=== PATIENT | female | born 1975 | race Caucasian/White ===

== ENCOUNTER 2018-07-27 06:54 | Day surgery (SDC) | payer BC, MEDICAID ==
[~2018-07-27 06:54] MED LIST: Lactated Ringers 1,000 ML IV SCH
[2018-07-27] MEDS ORDERED: Lidocaine 1% with EPINEPHrine 1:100,000 10 ML MDV ONE (07:05)
[2018-07-27] MEDS ORDERED: Lidocaine 2% 5 ML SDV ONE (07:18)
[2018-07-27] MEDS ORDERED: Propofol 200 MG/20 ML SDV ONE (07:18)
[2018-07-27] MEDS ORDERED: Midazolam 1 MG/ML 2 ML SDV ONE (07:18)
[2018-07-27] MEDS ORDERED: fentaNYL 100 MCG/2 ML SDV ONE (07:18)
--- NOTE | 2018-07-27 07:20 | PCM.PREANE ---
Preanesthetic Assessment - Anesthesia/Transfusion/Family Hx Anesthesia History: Prior Anesthesia Without Reaction Family History of Anesthesia Reaction: No Transfusion History: No Prior Transfusion(s) - Review of Systems General: No Symptoms Pulmonary: No Symptoms Cardiovascular: No Symptoms Gastrointestinal: No Symptoms Neurological: No Symptoms Other: Reports: None - Physical Assessment NPO Status Date: 07/27/18 NPO Status Time: 06:15 Height: 1.68 m Weight: 108.862 kg ASA Class: 2 Mental Status: Alert & Oriented x3 Airway Class: Mallampati = 2 Dentition: Reports: Normal Dentition Thyro-Mental Finger Breadths: 3 Mouth Opening Finger Breadths: 3 ROM/Head Extension: Full Lungs: Clear to Auscultation, Normal Respiratory Effort Cardiovascular: Regular Rate, Regular Rhythm - Allergies Allergies/Adverse Reactions: Allergies Allergy/AdvReac Type Severity Reaction Status Date / Time No Known Allergies Allergy Verified 07/23/18 09:16 - Acknowledgements Anesthesia Type Planned: MAC Pt an Appropriate Candidate for the Planned Anesthesia: Yes Alternatives and Risks of Anesthesia Discussed w Pt/Guardian: Yes Pt/Guardian Understands and Agrees with Anesthesia Plan: Yes PreAnesthesia Questionnaire HEENT History: Reports: Other (See Below) Other HEENT History: wears glasses/contacts Cardiovascular History: Reports: High Cholesterol, Hypertension, Other (See Below) Other Cardiovascular History: murmur as an infant Respiratory History: Reports: None Gastrointestinal History: Reports: GERD Genitourinary History: Reports: None Musculoskeletal History: Reports: None Neurological History: Reports: None Psychiatric History: Reports: None Endocrine/Metabolic History: Reports: Hypothyroidism, Obesity/BMI 30+ Hematologic History: Reports: None Immunologic History: Reports: None Oncologic (Cancer) History: Reports: None Dermatologic History: Reports: None - Past Surgical History Head Surgeries/Procedures: Reports: None HEENT Surgical History: Reports: None Cardiovascular Surgical History: Reports: None Respiratory Surgical History: Reports: None GI Surgical History: Reports: None Female Surgical History: Reports: None Endocrine Surgical History: Reports: None Neurological Surgical History: Reports: Lumbar Spine Other Neurological Surgeries/Procedures: hx back surgery Musculoskeletal Surgical History: Reports: None Oncologic Surgical History: Reports: None Dermatological Surgical History: Reports: None - SUBSTANCE USE Smoking Status *Q: Current Every Day Smoker Tobacco Use Within Last Twelve Months: Cigarettes Recreational Drug Use History: No - HOME MEDS Home Medications: Home Meds Ethynodiol D-Ethinyl Estradiol [Kelnor 1-35 28 Tablet] 1 tab PO DAILY 07/23/18 [ History] Levothyroxine Sodium [Unithroid] 125 mcg PO DAILY 07/23/18 [History] Lisinopril 10 mg PO DAILY 07/23/18 [History] Omeprazole 20 mg PO DAILY 07/23/18 [History] Simvastatin 100 mg PO DAILY 07/23/18 [History] - CURRENT (IN HOUSE) MEDS Current Meds: Current Medications Lactated Ringer's (Ringers, Lactated) 1,000 mls @ 125 mls/hr IV ASDIRECTED ARACELI Discontinued Medications Lidocaine/Epinephrine (Xylocaine 1% With Epinephrine 1:100,000) Confirm Administered Dose 10 ml .ROUTE .STK-MED ONE Stop: 07/27/18 07:06
[2018-07-27] MEDS ORDERED: Ketorolac 30 MG/ML SDV ONE (08:32)
[2018-07-27] MEDS ORDERED: Atropine 0.1 MG/ML 10 ML Syringe IVPUSH PRN ×2 (08:40)
[2018-07-27] MEDS ORDERED: EPINEPHrine 1:10,000 1 MG/10 ML Syringe IVPUSH PRN (08:40)
[2018-07-27] MEDS ORDERED: 50% Dextrose in Water 50 ML Syringe IVPUSH PRN (08:40)
[2018-07-27] MEDS ORDERED: fentaNYL 100 MCG/2 ML SDV IVPUSH PRN (08:40)
[2018-07-27] MEDS ORDERED: Naloxone 0.4 MG/ML Syringe IVPUSH PRN (08:40)
[2018-07-27] MEDS ORDERED: Albuterol 0.083% 2.5 MG/3 ML Neb Soln NEB PRN (08:40)
--- NOTE | 2018-07-27 09:00 | PCM.OPNOTE ---
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
--- NOTE | 2018-07-27 09:20 | PCM48HPAN ---
Post Anesthesia Note - EVALUATION WITHIN 48HRS OF ANESTHETIC Vital Signs in Normal Range: Yes Patient Participated in Evaluation: Yes Respiratory Function Stable: Yes Airway Patent: Yes Cardiovascular Function Stable: Yes Hydration Status Stable: Yes Pain Control Satisfactory: Yes Mental Status Recovered: Yes Resp Rate: 16 - COMMENTS/OBSERVATIONS Free Text/Narrative:: patient by passed phase 1. There were no apparent anesthetic complications at this time. The patient has no complaints at this time. Discharge to floor per criteria.
--- NOTE | 2018-07-28 05:13 | OR ---
SURGEON: LISSETTE SILVA DATE OF PROCEDURE: PREOPERATIVE DIAGNOSIS: A 43-year-old para 2 with ASCUS HPV positive pap . Colposcopy showed ECC, VANIA 2. POSTOPERATIVE DIAGNOSIS: A 43-year-old para 2 with ASCUS HPV positive pap . Colposcopy showed ECC, VANIA 2. PROCEDURE: Loop electrosurgical excision procedure and endocervical curettage. PRIMARY SURGEON: Lissette Silva MD ANESTHESIA: MAC. FINDINGS: The patient had microscopically normal-appearing cervix with no areas of decreased Lugol intake. COMPLICATION: None. SPECIMEN: Cervix, the top-hat, bottom hat, and ECC. ESTIMATED BLOOD LOSS: Minimal. DESCRIPTION OF PROCEDURE: The patient was taken to the operating room where she was placed in the operating table in dorsal lithotomy position. The vagina and perineum were draped in the usual fashion. Using a bivalve speculum, the cervix was visualized and painted with Lugol solution. Using lignocaine with a spinal needle, the cervix was injected at 3, 6, and 9,12 o'clock position. Then using the loop electrode, the cone biopsy was removed from the ectocervix. Then subsequently, top hat was also removed, after which an ECC was done. After the ECC was done, the ball electrode was used to achieve hemostasis on the bed of the cone , and then monsel was then placed to secure hemostasis, and hemostasis was noted after the procedure. All instrument and pad counts were correct x2. CORDELL / KRISTIE /[id number] LEBRON
== END 2018-07-27 09:46 | disposition home or self-care (01) ==
LOC: MW.SDS 06:54
PROVIDERS: ATTEND Obstetrics & Gynecology
DX: D06.0 Carcinoma in situ of endocervix (principal); I10 Essential (primary) hypertension; K21.9 Gastro-esophageal reflux disease without esophagitis; E03.9 Hypothyroidism, unspecified; E78.00 Pure hypercholesterolemia, unspecified; F41.0 Panic disorder [episodic paroxysmal anxiety]; F17.210 Nicotine dependence, cigarettes, uncomplicated; Z79.3 Long term (current) use of hormonal contraceptives; Z79.1 Long term (current) use of non-steroidal anti-inflammatories (NSAID)
CPT/HCPCS: 36415; 57505; 57522; 84703; 85027; J1885; J2001; J2250; J2704; J3010; 88305; 88307